=== PATIENT | male | born 1970 | race Caucasian/White ===

== ENCOUNTER 2022-02-19 07:33 | Outpatient (REF) | payer OTHER, SELFPAY ==
[2022-02-19 08:12] LABS: Hematocrit 45.3 % (42.0-52.0); Hemoglobin 14.5 g/dl (14.0-18.0); Mean Corpuscular Hemoglobin 27.9 pg (27.0-33.0); Mean Corpuscular Volume 87.1 fL (80.0-98.0); Platelet Count 188 X10*3/uL (160-400); Red Cell Distribution Width 13.2 % (11.0-16.0); White Blood Count 5.4 X10*3/uL (4.8-10.8)
[2022-02-19 08:22] LABS: Estimated Average Glucose 105 mg/dL; Hemoglobin A1c % 5.3 %
[2022-02-19 08:56] LABS: Alanine Aminotransferase 47 U/L (0-40); Albumin Level 4.2 g/dL (3.5-5.0); Alkaline Phosphatase 86 U/L (39-117); Anion Gap 15 (12-20); Aspartate Amino Transferase 42 U/L (5-37); Bilirubin Total 0.5 mg/dL (0.0-1.0); Blood Urea Nitrogen 25 mg/dL (9-16); Calcium 9.5 mg/dL (8.4-10.2); Carbon Dioxide 27 mmol/L (22-29); Chloride 102 mmol/L (96-108); Cholesterol 222 mg/dL; Estimated Glomerular Filt Rate > 60; Glucose Fasting 96 mg/dL (60-99); HDL Cholesterol 42 mg/dL; LDL Cholesterol Calculated 163 mg/dl; Potassium 5.2 mmol/L (3.3-5.1); Sodium 139 mmol/L (135-145); Total Protein 7.5 g/dL (6.5-8.0); Triglycerides 85 mg/dL
[2022-02-19 09:19] LABS: TSH reflex Free T4 1.14 uIU/mL (0.32-4.0)
[2022-02-19 10:15] LABS: Creatinine Urine 123.75 mg/dL; Microalbum/Creatinine Ratio Ur 11.3 ug/mg cr
[2022-02-22 17:37] LABS: Carbohydrate Antigen 19-9 4 U/mL (<34)
== END 2022-02-19 07:34 | disposition home or self-care (01) ==
LOC: HO.LAB 07:33
PROVIDERS: PCP Physician Assistant; Visit Provider Physician Assistant
DX: Z13.29 Encounter for screening for other suspected endocrine disorder (principal); Z13.220 Encounter for screening for lipoid disorders; I10 Essential (primary) hypertension; Z80.0 Family history of malignant neoplasm of digestive organs
CPT/HCPCS: 36415; 80053; 80061; 82043; 83036; 84443; 85027; 86301

== ENCOUNTER 2022-04-06 08:26 | Outpatient (REF) | payer OTHER, SELFPAY ==
--- NOTE | ~2022-04-06 | US_ITS ---
EXAMINATION: US ABDOMEN LIMITED CLINICAL INFORMATION: Other specified abnormal findings of blood chemistry. COMPARISON: None TECHNIQUE: Real-time imaging of the right upper quadrant abdominal viscera. Technically limited study secondary to bowel gas. FINDINGS: PANCREAS: Not visualized due to shadowing from overlying bowel gas. LIVER: Limited visualization secondary to patient body habitus and shadowing from overlying bowel gas. Increased parenchymal attenuation. No discrete focal liver lesion or significant intrahepatic biliary ductal dilatation. GALLBLADDER: The gallbladder is physiologically distended without evidence of stones, sludge, polyps, wall thickening or pericholecystic fluid. COMMON BILE DUCT: Normal in caliber measuring 0.3 cm in diameter. RIGHT KIDNEY: Limited visualization. The kidney measures 12.1 cm in maximum dimension. No gross nephrolithiasis or hydronephrosis. FREE FLUID: None. US/US abdomen limited IMPRESSION: Very limited examination secondary to patient body habitus and shadowing from overlying bowel gas. If deemed appropriate, correlation with a CT or MR of the abdomen could be obtained. The liver demonstrates increased echogenicity suggesting hepatic steatosis and/or hepatocellular disease.
== END 2022-04-06 08:27 | disposition home or self-care (01) ==
LOC: HO.HMGCX 08:26
PROVIDERS: PCP Physician Assistant; Visit Provider Physician Assistant
DX: R79.89 Other specified abnormal findings of blood chemistry (principal)
CPT/HCPCS: 76705

== ENCOUNTER 2023-03-11 06:20 | Outpatient (REF) | payer OTHER, SELFPAY ==
[2023-03-11 07:19] LABS: Hematocrit 47.6 % (42.0-52.0); Hemoglobin 14.9 g/dl (14.0-18.0); Mean Corpuscular HGB Conc 31.3 g/dl (31.0-36.0); Mean Corpuscular Hemoglobin 27.1 pg (27.0-33.0); Mean Corpuscular Volume 86.5 fL (80.0-98.0); Mean Platelet Volume 9.7 fL (9.4-12.4); Platelet Count 199 X10*3/uL (160-400); White Blood Count 6.9 X10*3/uL (4.8-10.8)
[2023-03-11 07:49] LABS: Alanine Aminotransferase 45 U/L (0-40); Albumin Level 4.3 g/dL (3.5-5.0); Alkaline Phosphatase 86 U/L (39-117); Anion Gap 12 (12-20); Aspartate Amino Transferase 37 U/L (5-37); Bilirubin Total 0.6 mg/dL (0.0-1.0); Blood Urea Nitrogen 19 mg/dL (9-16); Calcium 9.5 mg/dL (8.4-10.2); Carbon Dioxide 28 mmol/L (22-29); Chloride 104 mmol/L (96-108); Cholesterol 236 mg/dL (<200); Estimated Glomerular Filt Rate > 60; Glucose Fasting 103 mg/dL (60-99); HDL Cholesterol 41 mg/dL (>40); LDL Cholesterol Calculated 172 mg/dL (<100); Potassium 4.3 mmol/L (3.3-5.1); Sodium 140 mmol/L (135-145); Total Protein 8.1 g/dL (6.5-8.0); Triglycerides 116 mg/dL (<150)
[2023-03-11 08:04] LABS: TSH reflex Free T4 1.57 uIU/mL (0.32-4.0)
[2023-03-11 09:28] LABS: Creatinine Urine 77.83 mg/dL; Microalbum/Creatinine Ratio Ur 35.9 ug/mg cr (<30)
== END 2023-03-11 06:21 | disposition home or self-care (01) ==
LOC: HO.LAB 06:20
PROVIDERS: PCP Physician Assistant; Visit Provider Physician Assistant
DX: I10 Essential (primary) hypertension (principal); E78.9 Disorder of lipoprotein metabolism, unspecified
CPT/HCPCS: 36415; 80053; 80061; 82043; 82570; 84443; 85027

== ENCOUNTER 2023-03-16 15:55 | Outpatient (AMB) | payer OTHER, SELFPAY ==
[2023-03-16 15:57] VITALS: BP 116/72; PULSE 90; O2SAT 96; BMI 33.4
--- NOTE | 2023-03-16 15:57 | A.OFFPC_ITS ---
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 Required: No Accompanied by: Self / Same As Patient Allergies penicillin V Allergy (Unknown, Verified 03/16/23 16:08) rash Medication List - Last Reconciled 03/16/23 by Jori Spivey PA-C lisinopril-hydrochlorothiazide 20-12.5 mg 1 tab PO DAILY 90 days Tobacco use date assessed: 03/11/22 Dental Screening Dental Screen Date: 03/16/23 Did you have a dental visit in the last 12 months?: Yes Did you have a dental problem in the last 6 months where you did not have access to dental care?: No Was dental information given to patient?: Patient has dentist HPI Annual Exam HPI Details Is a 52 year here today physical.? Patient has a past history significant hypertension, obesity family history pancreatic cancer. Concern--> elevated fasting blood sugar and cholesterol. . Hypertension:? Blood pressure today in office acceptable. He denies any headaches, chest discomforts or palpitations. He reports he is adherent to blood pressure medication on a daily basis. .. Borderline high total cholesterol: Most recent lipid panel showing borderline high total cholesterol and LDL of 172. PLAN: He will work on lifestyle modifications to reduce his high cholesterol Elevated liver enzymes: Most recent liver enzymes have improved. Likely related to his obesity. . Family history pancreatic cancer:? Reports he is still gathering family history and has been referred to genetic counselor though has not been seen. Has done Cologuard and was negative Tumor markers negative Labs: Reviewed with patient and noted a slightly elevated fasting blood sugar 103. .. Vaccine: UTD with Tdap,? UTD flu vac, UTD with COVID Vac, considering shingrex vaccine. .. Colon cancer screening: [place] NEGATIVE - 11/2021- repeat 3 years Laboratory Tests 02/19/22 02/19/22 02/19/22 07:55 07:55 07:55 RBC Fasting Glucose 96 ALT 47 H Cholesterol 222 LDL Cholesterol, C alc TSH Urine Microalbumin 02/19/22 03/11/23 03/11/23 07:55 06:27 06:27 RBC Fasting Glucose ALT 45 H Cholesterol 236 H LDL Cholesterol, C alc 163 TSH Urine Microalbumin 03/11/23 03/11/23 03/11/23 06:27 06:27 06:57 RBC 5.50 Fasting Glucose 103 H ALT Cholesterol LDL Cholesterol, C alc 172 H TSH 1.57 Urine Microalbumin 28.0 PFS Medical History Colon cancer screening Surgical History History of right hip replacement History of rhinoplasty Family History (Updated 03/16/23 @ 16:16 by Jori Spivey PA-C) Father Diabetes Pancreatic cancer Mother Hypertension Hypercholesteremia Dementia Brother Hypercholesteremia Hypertension Paternal Uncle Pancreatic cancer Social History Housing: House Alcohol intake: never Patient Tobacco Use Status: Never used Tobacco Tobacco use type: Cigarette e-Cigarette/Vaping Use: Never Used Second Hand Smoke Exposure: No Current occupational status: employed 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 1. Little interest or pleasure in doing things: not at all 2. Feeling down, depressed, or hopeless: not at all 3. Trouble falling or staying asleep, or sleeping too much: not at all 4. Feeling tired or having little energy: not at all 5. Poor appetite or overeating: not at all 6. Feeling bad about yourself - or that you are a failure or have let yourself or your family down: not at all 7. Trouble concentrating on things, such as reading the newspaper or watching television: not at all 8. Moving or speaking so slowly that other people could have noticed. Or the opposite - being so fidgety or restless that you have been moving around a lot more than usual: not at all 9. Thoughts that you would be better off or of hurting yourself in some way: not at all Total score: 0 Depression Screening Interpretation: Negative Depression Screening Done: Yes 83945 - PHQ-9 Billing: Yes Source: Developed by Drs. Yousif Reich, Amira Reyes, David Rausch and colleagues, with an educational amari from [employer]. Thrive Questionnaire Date Thrive assessed: 03/11/22 I am a: Patient What is your living situation today?: I have a steady place to live Within the past 12 months, did the food you bought not last and you didn't have the money to get more?: Never true Within the past 12 months, did you worry whether your food would run out before you got money to buy more?: Never true Do you have trouble paying for medicines?: No Do you have trouble getting transportation to medical appointments?: No Do you have trouble paying your heating and electricity bill?: No Do you have trouble taking care of your child, family member or friend?: No Do you have trouble with day-to-day activities such as bathing, preparing meals, shopping, managing finances, etc.?: No Are you currently unemployed and looking for a job?: No Are you interested in more education?: No Please select the resources that you would like help with: None Currently or been in a relationship where the following occur: no concerns reported AUDIT C Alcohol Use Questionnaire (AUDIT-C) 1. How often do you have a drink containing alcohol?: Never Total Score: 0 SITA-7 AMB Questionnaire SITA-7 Date SITA - 7 assessed: 03/11/22 Source: Developed by Drs. Yousif Reich, Amira Reyes, David Rausch and colleagues, with an educational amari from [employer]. Review of Systems Const Denies body aches, Denies chills, Denies excessive sweating, Denies fatigue, Denies fever(s) and Denies headache(s) Eyes Denies blurry vision ENT Denies dysphagia, Denies vertigo, Denies dizziness, Denies headache(s), Denies hearing loss and Denies tinnitus Card Denies chest pain, Denies chest pain with activity, Denies syncope, Denies irregular heart rhythm and Denies dyspnea Resp Denies chest congestion, Denies cough, Denies hemoptysis, Denies dyspnea and Denies wheezing GI Denies abdominal pain, Denies melena, Denies hematochezia, Denies coffee ground emesis, Denies dysphagia, Denies diarrhea, Denies nausea and Denies vomiting Denies difficulty urinating, Denies dysuria, Denies urinary frequency, Denies urinary hesitancy and Denies urinary urgency Musc Denies arthralgias, Denies limited range of motion, Denies muscle cramps and Denies muscle weakness Skin/Breast Denies rash and Denies skin ulcer Neuro Denies Abnormal speech present, Denies confusion, Denies vertigo, Denies dizziness, Denies syncope, Denies headache(s), Denies memory loss and Denies seizure-like activity Psych Denies anxiety, Denies confusion, Denies depression, Denies memory loss, Denies panic attacks and Denies paranoia Endo Denies excessive sweating, Denies fatigue, Denies flushing, Denies polydipsia and Denies polyuria Aller/Immun Denies wheezing Physical exam (Primary Care) Vital Signs: Last Vital Signs Pulse 90 03/16/23 15:57 BP 116/72 03/16/23 15:57 Pulse Ox 96 03/16/23 15:57 Oxygen Delivery Method Room Air 03/16/23 15:57 BMI result Body Mass Index 33.4 BMI Assessment/Plan discussion: High Tobacco/Smoking Status: Tobacco use Status Tobacco use date assessed 03/11/22 03/16/23 15:58 Patient Tobacco Use Status Never used Tobacco 03/16/23 15:58 Tobacco use type Cigarette 03/16/23 15:58 e-Cigarette/Vaping Use Never Used 03/16/23 15:58 PHQ-9: PHQ-9 Score PHQ-9: Total score 0 03/16/23 16:10 Depression Screening Interpretation: Negative Thrive Assessment: Date of Thrive Assessment Date Thrive assessed 03/11/22 03/16/23 15:58 Currently or been in a relationship where the following occur: no concerns reported Const Other: Obese-weight gain noted General: cooperative, comfortable, no acute distress, alert and awake; No confusion Orientation/consciousness: oriented to person, oriented to place, patient oriented x3 and No confusion HENMT Head: Yes normocephalic Ears: external ears normal and TM's normal bilaterally Face and sinus: No sinus tenderness Mouth: Normal oral and palatal mucosa present and tongue normal Teeth and gingiva: dentition normal and gingiva normal Throat: Yes posterior oropharynx normal, Yes tonsils normal and Yes uvula midline Eyes Conjunctivae: conjunctivae normal Sclerae: sclerae normal Pupils: Equal, round and reactive pupils present EOM: EOMs intact bilaterally Direct Ophthalmoscopy: No no photophobia Neck Neck: Yes no lymphadenopathy, No tender and Yes no JVD Thyroid: Thyroid normal Carotids: no bruits Chest Chest palpation & inspection: no tenderness Resp Effort & Inspection: normal respiratory effort, no audible wheezes, not labored and no stridor Auscultation: no crackles, no rales, no rhonchi and no wheezes Cardio Jugular venous distension: no JVD Rate: regular rate, not bradycardic and not tachycardic Rhythm: regular rhythm Bruits: no carotid bruits Peripheral pulses: Peripheral pulses 2+ throughout GI Inspection: Yes normal to inspection, No abdominal wall ecchymosis and No visible herniation Palpation (GI): Soft to palpation, nontender, no guarding, not rigid and No hepatosplenomegaly present Auscultation: normoactive bowel sounds General: Yes no CVA tenderness Back/Spine/Pelvis Back: no CVA tenderness and No back tenderness Cervical Spine: cervical ROM normal Thoracic/Lumbar Spine: thoracic and lumbar spine normal to inspection, straight leg raise negative bilaterally, No thoraco-lumbar ROM limited and No lumbar spinal tenderness Skin Lesions: no lesions Rashes: no rashes Wounds: no wounds Neuro General: oriented to person, oriented to place, patient oriented x3, CN's II-XI intact bilaterally and No confusion Cranial nerves: Yes Equal, round and reactive pupils present and Yes Normal accommodation reflex present Cognition (Neuro): normal cognition Speech: No Abnormal speech present Gait exam (Neuro): Normal gait present Motor exam (neuro): 5/5 motor strength present throughout Extrem Right upper extremity: full ROM; no cyanosis Left upper extremity: full ROM; no cyanosis Right lower extremity: no edema Left lower extremity: no edema Psych Appearance: grossly normal Mental Status: mental status grossly normal Affect: normal affect Attitude: cooperative Thought process: Normal thought process present Assessment and Plan Assessment & Plan (1) Annual physical exam: Code(s): Z00.00 - Encounter for general adult medical examination without abnormal findings (2) HTN (hypertension): Code(s): I10 - Essential (primary) hypertension Qualifiers: Hypertension type: primary hypertension Qualified Code(s): I10 - Es sential (primary) hypertension Plan: Patient's blood pressure acceptable today in office. Will continue his current dose of antihypertensive medication with goal blood pressure be below 140/90 (3) Borderline high cholesterol: Code(s): E78.9 - Disorder of lipoprotein metabolism, unspecified Plan: Patient's total cholesterol borderline high. Also LDL elevated at 172. He will work on lifestyle modifications to reduce his high cholesterol foods in his diet. He will continue to try to be as physically active as he can in order to lose weight. (4) Elevated LFTs: Code(s): R79.89 - Other specified abnormal findings of blood chemistry Plan: LFThave improved previous. Will continue to follow. (5) Obese: Code(s): E66.9 - Obesity, unspecified Qualifiers: Body mass index: BMI 31.0-31.9 Obesity classification: adult class 1 (BMI 30 - 34.9) Obesity type: due to excess calories Serious obesity comorbidity presence: without serious comorbidity Qualified Code(s): E66.09 - Other obesity due to excess calories; Z68.31 - Body mass index [BMI] 31.0-31.9, adult Plan: Patient does understand his BMI is over 30 will work on being more physically active and adapting to better eating habits to reduce his weight (6) Impaired glucose metabolism: Code(s): R73.09 - Other abnormal glucose Plan: Patient's most recent fasting blood sugar 103. He is concerned diabetes thus will check A1c at next lab draw. Orders: Orders Lipid Panel 03/16/23 E78.9 - Disorder of lipoprotein metabolism, unspecified Hemoglobin A1c 03/16/23 R73.09 - Other abnormal glucose Microalbumin, Random (w Creat) 03/16/23 I10 - Essential (primary) hypertension Comprehensive [place]. Panel Fast 03/16/23 I10 - Essential (primary) hypertension Complete Blood Count no Diff 03/16/23 I10 - Essential (primary) hypertension Prostate Specific Antigen Scr 03/16/23 I10 - Essential (primary) hypertension, Z12.5 - Encounter for screening for malignant neoplasm of prostate Coding Level of Care Code Est Pt Prev Care [id number]([id number]) Diagnoses Annual physical exam Z00.00 Primary hypertension I10 Hypertension type: primary hypertension Borderline high cholesterol E78.9 Elevated LFTs R79.89 Class 1 obesity due to excess calories without serious comorbidity with body mass index (BMI) of 31.0 to 31.9 in adult E66.09; Z68.31 Body mass index: BMI 31.0-31.9 Obesity classification: adult class 1 (BMI 30 - 34.9) Obesity type: due to excess calories Serious obesity comorbidity presence: without serious comorbidity Impaired glucose metabolism R73.09
== END 2023-03-16 16:28 | disposition home or self-care (01) ==
PROVIDERS: Visit Provider Physician Assistant
DX: Z00.00 Encounter for general adult medical examination without abnormal findings (principal); I10 Essential (primary) hypertension; E78.9 Disorder of lipoprotein metabolism, unspecified; R79.89 Other specified abnormal findings of blood chemistry; E66.09 Other obesity due to excess calories; Z68.31 Body mass index [BMI] 31.0-31.9, adult; R73.09 Other abnormal glucose
CPT/HCPCS: 99396

== ENCOUNTER 2023-09-23 06:39 | Outpatient (REF) | payer OTHER, SELFPAY ==
[2023-09-23 08:03] LABS: Hematocrit 48.3 % (42.0-52.0); Hemoglobin 15.3 g/dl (14.0-18.0); Mean Corpuscular HGB Conc 31.7 g/dl (31.0-36.0); Mean Corpuscular Hemoglobin 27.9 pg (27.0-33.0); Mean Corpuscular Volume 88.1 fL (80.0-98.0); Mean Platelet Volume 10.5 fL (9.4-12.4); Platelet Count 182 X10*3/uL (160-400); Red Blood Count 5.48 X10*6/uL (4.60-5.80); Red Cell Distribution Width 13.6 % (11.0-16.0); White Blood Count 6.1 X10*3/uL (4.8-10.8)
[2023-09-23 08:24] LABS: Estimated Average Glucose 105 mg/dL; Hemoglobin A1c % 5.3 % (<6.0)
[2023-09-23 08:34] LABS: Creatinine Urine 104.57 mg/dL; Microalbum/Creatinine Ratio Ur 21.9 ug/mg cr (<30)
[2023-09-23 08:48] LABS: Alanine Aminotransferase 50 U/L (0-40); Albumin Level 4.2 g/dL (3.5-5.0); Alkaline Phosphatase 74 U/L (39-117); Anion Gap 12 (12-20); Aspartate Amino Transferase 37 U/L (5-37); Bilirubin Total 0.4 mg/dL (0.0-1.0); Blood Urea Nitrogen 22 mg/dL (9-16); Calcium 9.6 mg/dL (8.4-10.2); Carbon Dioxide 28 mmol/L (22-29); Chloride 105 mmol/L (96-108); Cholesterol 218 mg/dL (<200); Estimated Glomerular Filt Rate > 60; Glucose Fasting 94 mg/dL (60-99); HDL Cholesterol 43 mg/dL (>40); LDL Cholesterol Calculated 154 mg/dL (<100); Potassium 4.4 mmol/L (3.3-5.1); Sodium 141 mmol/L (135-145); Total Protein 7.7 g/dL (6.5-8.0); Triglycerides 106 mg/dL (<150)
[2023-09-23 08:56] LABS: Prostate Specific Antigen Scr 0.17 ng/mL (<0.05-4.0)
== END 2023-09-23 06:40 | disposition home or self-care (01) ==
LOC: HO.LAB 06:39
PROVIDERS: PCP Physician Assistant; Visit Provider Physician Assistant
DX: I10 Essential (primary) hypertension (principal); Z12.5 Encounter for screening for malignant neoplasm of prostate; E78.9 Disorder of lipoprotein metabolism, unspecified; R73.09 Other abnormal glucose
CPT/HCPCS: 36415; 80053; 80061; 82043; 82570; 83036; 84153; 85027

== ENCOUNTER 2023-09-27 15:43 | Outpatient (AMB) | payer OTHER, SELFPAY ==
[2023-09-27 15:52] VITALS: BP 114/70; PULSE 82; O2SAT 97; BMI 30.4
--- NOTE | 2023-09-27 15:52 | A.OFFPC_ITS ---
Vital Signs 09/27/23 15:52 Height 6 ft 3 in Weight 243 lb 6 oz BMI 30.4 BP 114/70 Blood Pressure Location Lt brachial Position Sitting Pulse 82 Pulse Source Pulse Oximeter Pulse Oximetry (%) 97 Oxygen Delivery Method Room Air Intake Visit Reasons: f/u labs - HTN- IGM Stove Polisher Required: No Accompanied by: Self / Same As Patient Allergies penicillin V Allergy (Unknown, Verified 09/27/23 16:14) rash Medication List - Last Reconciled 09/27/23 by Jori Spivey PA-C lisinopril-hydrochlorothiazide 20-12.5 mg 1 tab PO DAILY 90 days Tobacco use date assessed: 09/27/23 Dental Screening Dental Screen Date: 09/27/23 Did you have a dental visit in the last 12 months?: Yes Did you have a dental problem in the last 6 months where you did not have access to dental care?: No Was dental information given to patient?: Patient has dentist HPI f/u labs - HTN- IGM HPI Details ? Patient has a past history significant hypertension, obesity family history pancreatic cancer. . Hypertension:? Blood pressure today in office acceptable. He denies any headaches, chest discomforts or palpitations. He reports he is adherent to blood pressure medication on a daily basis. .. Borderline high total cholesterol: . Most recent lipid panel showing much improved total cholesterol and LDL. He has been working on lifestyle and dietary modifications in his lost significant amount of weight since last office visit. PLAN: He will continue to work on lifestyle modifications to reduce his high cholesterol Elevated liver enzymes: Still has slightly elevated ALT. Does have ultrasound with evidence of fatty liver disease. Likely related to his obesity. . Family history pancreatic cancer:? Reports he is still gathering family history and has been referred to genetic counselor though has not been seen. Has done Cologuard and was negative Tumor markers negative [facility] Medical History Colon cancer screening Surgical History History of right hip replacement History of rhinoplasty Family History Father Diabetes Pancreatic cancer Mother Hypertension Hypercholesteremia Dementia Brother Hypercholesteremia Hypertension Paternal Uncle Pancreatic cancer Social History Housing: House Alcohol intake: never Patient Tobacco Use Status: Never used Tobacco Tobacco use type: Cigarette e-Cigarette/Vaping Use: Never Used Second Hand Smoke Exposure: No Current occupational status: employed 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 1. Little interest or pleasure in doing things: not at all 2. Feeling down, depressed, or hopeless: not at all 3. Trouble falling or staying asleep, or sleeping too much: not at all 4. Feeling tired or having little energy: not at all 5. Poor appetite or overeating: not at all 6. Feeling bad about yourself - or that you are a failure or have let yourself or your family down: not at all 7. Trouble concentrating on things, such as reading the newspaper or watching television: not at all 8. Moving or speaking so slowly that other people could have noticed. Or the opposite - being so fidgety or restless that you have been moving around a lot more than usual: not at all 9. Thoughts that you would be better off or of hurting yourself in some way: not at all Total score: 0 Depression Screening Interpretation: Negative Depression Screening Done: Yes 85750 - PHQ-9 Billing: Yes Source: Developed by Drs. Yousif Reich, Amira Reyes, David Rausch and colleagues, with an educational amari from [employer]. Thrive Questionnaire Date Thrive assessed: 09/27/23 I am a: Patient What is your living situation today?: I have a steady place to live Within the past 12 months, did the food you bought not last and you didn't have the money to get more?: Never true Within the past 12 months, did you worry whether your food would run out before you got money to buy more?: Never true Do you have trouble paying for medicines?: No Do you have trouble getting transportation to medical appointments?: No Do you have trouble paying your heating and electricity bill?: No Do you have trouble taking care of your child, family member or friend?: No Do you have trouble with day-to-day activities such as bathing, preparing meals, shopping, managing finances, etc.?: No Are you currently unemployed and looking for a job?: No Are you interested in more education?: No Please select the resources that you would like help with: None Currently or been in a relationship where the following occur: no concerns reported THRIVE Score: 0 AUDIT C Alcohol Use Questionnaire (AUDIT-C) 1. How often do you have a drink containing alcohol?: Never Total Score: 0 SITA-7 AMB Questionnaire SITA-7 Date SITA - 7 assessed: 09/27/23 Feeling nervous, anxious, or on edge: 0 = Not at all Not being able to stop or control worryin = Not at all Worrying too much about different things: 0 = Not at all Trouble relaxin = Not at all Being so restless that it is hard to sit still: 0 = Not at all Becoming easily annoyed or irritable: 0 = Not at all Feeling afraid as if something awful might happen: 0 = Not at all Total SITA-7 score (0-4 normal; 5-9 mild; 10-14 moderate; 15-21 severe): 0 Source: Developed by Drs. Yousif Reich, Amira Reyes, David Rausch and colleagues, with an educational amari from [employer]. SITA-7 Assessment Billing SITA-7 Assessment Tool: SITA-7 Assessment 83327 Review of Systems Const Denies headache(s) Eyes Denies loss of vision ENT Denies vertigo, Denies dizziness, Denies headache(s) and Denies sore throat Card Denies chest pain, Denies leg edema and Denies lightheadedness Resp Denies cough, Denies hemoptysis and Denies wheezing GI Denies abdominal pain, Denies melena, Denies constipation, Denies diarrhea and Denies vomiting Denies dysuria, Denies urinary frequency and Denies urinary urgency Musc Denies arthralgias, Denies joint swelling, Denies numbness and Denies tingling Neuro Denies Abnormal speech present, Denies behavioral changes, Denies vertigo, Denies dizziness, Denies headache(s), Denies loss of vision, Denies memory loss, Denies numbness and Denies tingling Psych Denies anxiety, Denies behavioral changes, Denies depression, Denies memory loss and Denies panic attacks Deonte/Lymph Denies easy bleeding and Denies easy bruising Aller/Immun Denies wheezing Physical exam (Primary Care) Vital Signs: Last Vital Signs Pulse 82 09/27/23 15:52 BP 114/70 09/27/23 15:52 Pulse Ox 97 09/27/23 15:52 Oxygen Delivery Method Room Air 09/27/23 15:52 BMI result Body Mass Index 30.4 Tobacco/Smoking Status: Tobacco use Status Tobacco use date assessed 09/27/23 09/27/23 15:58 Patient Tobacco Use Status Never used Tobacco 09/27/23 15:58 Tobacco use type Cigarette 09/27/23 15:58 e-Cigarette/Vaping Use Never Used 09/27/23 15:58 PHQ-9: PHQ-9 Score PHQ-9: Total score 0 09/27/23 16:15 Depression Screening Interpretation: Negative Thrive Assessment: Date of Thrive Assessment Date Thrive assessed 09/27/23 09/27/23 15:58 Currently or been in a relationship where the following occur: no concerns reported Const General: healthy appearing, no acute distress, alert and awake Nutritional Appearance: well nourished Orientation/consciousness: oriented to person, oriented to place and oriented to time HENMT Ears: TM's normal bilaterally General nose exam: Normal nasal mucous membranes and turbinates present Eyes Conjunctivae: conjunctivae normal Sclerae: sclerae normal Pupils: Equal, round and reactive pupils present Neck Neck: Yes no lymphadenopathy and Yes no JVD Thyroid: Thyroid normal Carotids: no bruits Resp Effort & Inspection: normal respiratory effort and not tachypneic Auscultation: no crackles, no rales, no rhonchi and no wheezes Cardio Rate: regular rate Rhythm: regular rhythm Heart sounds: no murmurs and normal S1 and S2 GI Palpation (GI): Soft to palpation, nontender, no hepatomegaly and no splenomegaly Auscultation: normal bowel sounds Skin General skin exam: no rashes or lesions noted and dry skin Neuro General: oriented to person, oriented to place and oriented to time Cranial nerves: Yes Equal, round and reactive pupils present Speech: No Abnormal speech present Gait exam (Neuro): Normal gait present Motor exam (neuro): no tremor noted Extrem Right upper extremity: full ROM Left upper extremity: full ROM Right lower extremity: full ROM; no edema Left lower extremity: full ROM; no edema Psych Mental Status: mental status grossly normal Speech and movement: Normal speech and movement present Affect: normal affect Attitude: cooperative Thought process: Normal thought process present Assessment and Plan Assessment & Plan (1) HTN (hypertension): Code(s): I10 - Essential (primary) hypertension Qualifiers: Hypertension type: primary hypertension Qualified Code(s): I10 - Essential (primary) hypertension Plan: Patient's blood pressure acceptable today in office. Will continue his current dose of antihypertensive medication with goal blood pressure be below 140/90 (2) Borderline high cholesterol: Code(s): E78.9 - Disorder of lipoprotein metabolism, unspecified Plan: Patient's total cholesterol borderline high though has improved. He will continue to work on lifestyle modifications to reduce his high cholesterol foods in his diet. He will continue to try to be as physically active as he can in order to lose weight. (3) Elevated LFTs: Code(s): R79.89 - Other specified abnormal findings of blood chemistry Plan: LFThave improved previous. Will continue to follow. (4) Impaired glucose metabolism: Code(s): R73.09 - Other abnormal glucose Plan: Most recent fasting blood sugar much improved since he has been making lifestyle changes. A1c acceptable.. Orders: Orders Complete Blood Count no Diff 6 Months E78.9 - Disorder of lipoprotein metabolism, unspecified Comprehensive [place]. Panel Fast 6 Months I10 - Essential (primary) hypertension Lipid Panel 6 Months E78.9 - Disorder of lipoprotein metabolism, unspecified Medications: Refilled lisinopril-hydrochlorothiazide 20-12.5 mg 1 tab PO DAILY 90 tabs 1RF 90 days I10 - Essential (primary) hypertension Patient Instructions: Goal: Blood pressure to remain below 140/90, Continue to lose weight and reduce total cholesterol below 200 Barriers: Adherence to healthy eating habits and physical activity. Coding Level of Care Code Est Pt Level 4 (38531) Diagnoses Primary hypertension I10 Hypertension type: primary hypertension Borderline high cholesterol E78.9 Elevated LFTs R79.89 Impaired glucose metabolism R73.09 Additional Codes SITA-7 Assessment Billing - SITA-7 Assessment Tool: SITA-7 Assessment 02485 ([id number])
== END 2023-09-27 16:26 | disposition home or self-care (01) ==
PROVIDERS: PCP Physician Assistant; Visit Provider Physician Assistant
DX: I10 Essential (primary) hypertension (principal); E78.9 Disorder of lipoprotein metabolism, unspecified; R79.89 Other specified abnormal findings of blood chemistry; R73.09 Other abnormal glucose
CPT/HCPCS: 99214

== ENCOUNTER 2024-04-11 07:25 | Outpatient (REF) | payer OTHER, SELFPAY ==
[2024-04-11 08:24] LABS: Hematocrit 48.7 % (42.0-52.0); Hemoglobin 15.4 g/dl (14.0-18.0); Mean Corpuscular HGB Conc 31.6 g/dl (31.0-36.0); Mean Corpuscular Hemoglobin 27.5 pg (27.0-33.0); Mean Corpuscular Volume 86.8 fL (80.0-98.0); Mean Platelet Volume 10.2 fL (9.4-12.4); Platelet Count 175 X10*3/uL (160-400); Red Blood Count 5.61 X10*6/uL (4.60-5.80); Red Cell Distribution Width 13.5 % (11.0-16.0); White Blood Count 6.6 X10*3/uL (4.8-10.8)
[2024-04-11 08:47] LABS: Alanine Aminotransferase 65 U/L (0-40); Albumin Level 4.3 g/dL (3.5-5.0); Alkaline Phosphatase 73 U/L (39-117); Anion Gap 11 (12-20); Aspartate Amino Transferase 44 U/L (5-37); Bilirubin Total 0.6 mg/dL (0.0-1.0); Blood Urea Nitrogen 24 mg/dL (9-16); Calcium 9.9 mg/dL (8.4-10.2); Carbon Dioxide 29 mmol/L (22-29); Chloride 105 mmol/L (96-108); Cholesterol 220 mg/dL (<200); Estimated Glomerular Filt Rate > 60; Glucose Fasting 93 mg/dL (60-99); HDL Cholesterol 42 mg/dL (>40); LDL Cholesterol Calculated 152 mg/dL (<100); Potassium 4.6 mmol/L (3.3-5.1); Sodium 140 mmol/L (135-145); Total Protein 7.7 g/dL (6.5-8.0); Triglycerides 133 mg/dL (<150)
== END 2024-04-11 07:26 | disposition home or self-care (01) ==
LOC: HO.LAB 07:25
PROVIDERS: PCP Physician Assistant; Visit Provider Physician Assistant
DX: Z00.00 Encounter for general adult medical examination without abnormal findings (principal); I10 Essential (primary) hypertension; E78.9 Disorder of lipoprotein metabolism, unspecified; E66.811 Obesity, class 1; R79.89 Other specified abnormal findings of blood chemistry; R73.09 Other abnormal glucose; Z79.899 Other long term (current) drug therapy
CPT/HCPCS: 36415; 80053; 80061; 85027; 96127

== ENCOUNTER 2024-04-11 15:57 | Outpatient (AMB) | payer OTHER, SELFPAY ==
[2024-04-11 16:19] VITALS: BP 132/88; PULSE 93; O2SAT 95; BMI 31.3
--- NOTE | 2024-04-11 16:19 | MHC.PC.OV ---
Vital Signs 04/11/24 16:19 Height 6 ft 3 in Weight 250 lb 4 oz BMI 31.3 BP 132/88 Blood Pressure Location Lt brachial Position Sitting Pulse 93 Pulse Source Pulse Oximeter Pulse Oximetry (%) 95 Oxygen Delivery Method Room Air Intake Visit Reasons: annual exam Intake Note: Patient is here today for a physical. Car Stower Required: No Accompanied by: Self / Same As Patient Allergies penicillin V Allergy (Unknown, Verified 04/11/24 16:28) rash Medication List - Last Reconciled 04/11/24 by Jori Spivey PA-C lisinopril-hydrochlorothiazide 20-12.5 mg 1 tab PO DAILY 90 days Tobacco use date assessed: 09/27/23 Dental Screening Dental Screen Date: 09/27/23 HPI annual exam HPI Details Patient is a 53-year-old male here today for routine annual physical. Patient has a past history significant hypertension, obesity family history pancreatic cancer. . Hypertension:? Blood pressure today in office acceptable. He denies any headaches, chest discomforts or palpitations. He reports he is adherent to blood pressure medication on a daily basis. .. Borderline high total cholesterol: . Most recent lipid panel showing much improved total cholesterol and LDL. He has been working on lifestyle and dietary modifications in his lost significant amount of weight since last office visit. PLAN: He will continue to work on lifestyle modifications to reduce his high cholesterol Elevated liver enzymes: Still has slightly more elevated ALT. Of note gained weight since last office visit. Does have ultrasound with evidence of fatty liver disease. Likely related to his obesity. . Family history pancreatic cancer:? Reports he is still gathering family history and has been referred to genetic counselor though has not been seen. Has done Cologuard and was negative Tumor markers negative Vaccine: UTD with Tdap,? UTD flu vac, UTD with COVID Vac, considering shingrex vaccine. .. Colon cancer screening: [place] NEGATIVE - 11/2021- repeat 3 years Laboratory Tests 09/23/23 04/11/24 06:55 07:46 RBC 5.61 Creatinine 0.96 AST 44 H ALT 65 H Cholesterol 220 H LDL Cholesterol, C alc 152 H Urine Microalbumin 23.0 PFSH Medical History (Updated 04/12/24 @ 07:31 by Jori Spivey PA-C) Family history of pancreatic cancer Colon cancer screening Surgical History History of right hip replacement History of rhinoplasty Family History Father Diabetes Pancreatic cancer Mother Hypertension Hypercholesteremia Dementia Brother Hypercholesteremia Hypertension Paternal Uncle Pancreatic cancer Social History Housing: House Alcohol intake: never Patient Tobacco Use Status: Never used Tobacco Tobacco use type: Cigarette e-Cigarette/Vaping Use: Never Used Second Hand Smoke Exposure: No Current occupational status: employed Current occupation: [employer] Cognitive needs: No Hearing needs: No Vision needs: Yes Questionnaire PHQ-9 Over the last 2 weeks, how often have you been bothered by any of the following problems? 1. Little interest or pleasure in doing things: not at all 2. Feeling down, depressed, or hopeless: not at all 3. Trouble falling or staying asleep, or sleeping too much: not at all 4. Feeling tired or having little energy: not at all 5. Poor appetite or overeating: not at all 6. Feeling bad about yourself - or that you are a failure or have let yourself or your family down: not at all 7. Trouble concentrating on things, such as reading the newspaper or watching television: not at all 8. Moving or speaking so slowly that other people could have noticed. Or the opposite - being so fidgety or restless that you have been moving around a lot more than usual: not at all 9. Thoughts that you would be better off or of hurting yourself in some way: not at all Total score: 0 Depression Screening Interpretation: Negative Depression Screening Done: Yes [id number] - PHQ-9 Billing: Yes Source: Developed by Drs. Yousif Reich, Amira Reyes, David Rausch and colleagues, with an educational amari from [employer]. Thrive Questionnaire Date Thrive assessed: 04/11/24 I am a: Patient What is your living situation today?: I have a steady place to live Within the past 12 months, did the food you bought not last and you didn't have the money to get more?: Never true Within the past 12 months, did you worry whether your food would run out before you got money to buy more?: Never true Do you have trouble paying for medicines?: No Do you have trouble getting transportation to medical appointments?: No Do you have trouble paying your heating and electricity bill?: No Do you have trouble taking care of your child, family member or friend?: No Do you have trouble with day-to-day activities such as bathing, preparing meals, shopping, managing finances, etc.?: No Are you currently unemployed and looking for a job?: No Are you interested in more education?: No Please select the resources that you would like help with: None Currently or been in a relationship where the following occur: No concerns reported THRIVE Score: 0 AUDIT C Alcohol Use Questionnaire (AUDIT-C) 1. How often do you have a drink containing alcohol?: Never 3. How often do you have six or more drinks on one occasion?: Never Total Score: 0 SITA-7 AMB Questionnaire SITA-7 Date SITA - 7 assessed: 04/11/24 Feeling nervous, anxious, or on edge: 0 = Not at all Not being able to stop or control worryin = Not at all Worrying too much about different things: 0 = Not at all Trouble relaxin = Not at all Being so restless that it is hard to sit still: 0 = Not at all Becoming easily annoyed or irritable: 0 = Not at all Feeling afraid as if something awful might happen: 0 = Not at all Total SITA-7 score (0-4 normal; 5-9 mild; 10-14 moderate; 15-21 severe): 0 Source: Developed by Drs. Yousif Reich, Amira Reyes, David Rausch and colleagues, with an educational amari from [employer]. SITA-7 Assessment Billing SITA-7 Assessment Tool: SITA-7 Assessment 15972 Review of Systems Const Denies body aches, Denies chills, Denies excessive sweating, Denies fatigue, Denies fever(s) and Denies headache(s) Eyes Denies blurry vision ENT Denies dysphagia, Denies vertigo, Denies dizziness, Denies headache(s), Denies hearing loss and Denies tinnitus Card Denies chest pain, Denies chest pain with activity, Denies syncope, Denies irregular heart rhythm and Denies dyspnea Resp Denies chest congestion, Denies cough, Denies hemoptysis, Denies dyspnea and Denies wheezing GI Denies abdominal pain, Denies melena, Denies hematochezia, Denies coffee ground emesis, Denies dysphagia, Denies diarrhea, Denies nausea and Denies vomiting Denies difficulty urinating, Denies dysuria, Denies urinary frequency, Denies urinary hesitancy and Denies urinary urgency Musc Denies arthralgias, Denies limited range of motion, Denies muscle cramps and Denies muscle weakness Skin/Breast Denies rash and Denies skin ulcer Neuro Denies Abnormal speech present, Denies confusion, Denies vertigo, Denies dizziness, Denies syncope, Denies headache(s), Denies memory loss and Denies seizure-like activity Psych Denies anxiety, Denies confusion, Denies depression, Denies memory loss, Denies panic attacks and Denies paranoia Endo Denies excessive sweating, Denies fatigue, Denies flushing, Denies polydipsia and Denies polyuria Aller/Immun Denies wheezing Physical exam (Primary Care) Vital Signs: Last Vital Signs Pulse 93 04/11/24 16:19 BP 132/88 04/11/24 16:19 Pulse Ox 95 04/11/24 16:19 Oxygen Delivery Method Room Air 04/11/24 16:19 BMI result Body Mass Index 31.3 BMI Assessment/Plan discussion: High BMI High, discussed plan: lifestyle, weight reduction, dietary and physical activity Tobacco/Smoking Status: Tobacco use Status Tobacco use date assessed 09/27/23 04/11/24 16:21 Patient Tobacco Use Status Never used Tobacco 04/11/24 16:21 Tobacco use type Cigarette 04/11/24 16:21 e-Cigarette/Vaping Use Never Used 04/11/24 16:21 PHQ-9: PHQ-9 Score PHQ-9: Total score 0 04/11/24 16:33 Depression Screening Interpretation: Negative Thrive Assessment: Date of Thrive Assessment Date Thrive assessed 04/11/24 04/11/24 16:21 Currently or been in a relationship where the following occur: No concerns reported Const General: cooperative, comfortable, no acute distress, alert and awake; No confusion Orientation/consciousness: oriented to person, oriented to place, patient oriented x3 and No confusion HENMT Head: Yes normocephalic Ears: external ears normal and TM's normal bilaterally Face and sinus: No sinus tenderness Mouth: Normal oral and palatal mucosa present and tongue normal Teeth and gingiva: dentition normal and gingiva normal Throat: Yes posterior oropharynx normal, Yes tonsils normal and Yes uvula midline Eyes Conjunctivae: conjunctivae normal Sclerae: sclerae normal Pupils: Equal, round and reactive pupils present EOM: EOMs intact bilaterally Direct Ophthalmoscopy: No no photophobia Neck Neck: Yes no lymphadenopathy, No tender and Yes no JVD Thyroid: Thyroid normal Carotids: no bruits Chest Chest palpation & inspection: no tenderness Resp Effort & Inspection: normal respiratory effort, no audible wheezes, not labored and no stridor Auscultation: no crackles, no rales, no rhonchi and no wheezes Cardio Jugular venous distension: no JVD Rate: regular rate, not bradycardic and not tachycardic Rhythm: regular rhythm Bruits: no carotid bruits Peripheral pulses: Peripheral pulses 2+ throughout GI Inspection: Yes normal to inspection, No abdominal wall ecchymosis and No visible herniation Palpation (GI): Soft to palpation, nontender, no guarding, not rigid and No hepatosplenomegaly present Auscultation: normoactive bowel sounds General: Yes no CVA tenderness Back/Spine/Pelvis Back: no CVA tenderness and No back tenderness Cervical Spine: cervical ROM normal Thoracic/Lumbar Spine: thoracic and lumbar spine normal to inspection, straight leg raise negative bilaterally, No thoraco-lumbar ROM limited and No lumbar spinal tenderness Skin Lesions: no lesions Rashes: no rashes Wounds: no wounds Neuro General: oriented to person, oriented to place, patient oriented x3, CN's II-XI intact bilaterally and No confusion Cranial nerves: Yes Equal, round and reactive pupils present and Yes Normal accommodation reflex present Cognition (Neuro): normal cognition Speech: No Abnormal speech present Gait exam (Neuro): Normal gait present Motor exam (neuro): 5/5 motor strength present throughout Extrem Right upper extremity: full ROM; no cyanosis Left upper extremity: full ROM; no cyanosis Right lower extremity: no edema Left lower extremity: no edema Psych Appearance: grossly normal Mental Status: mental status grossly normal Affect: normal affect Attitude: cooperative Thought process: Normal thought process present Coding Level of Care Code Est Pt Prev Care 40-64y([id number]) Diagnoses Annual physical exam Z00.00 Primary hypertension I10 Hypertension type: primary hypertension Borderline high cholesterol E78.9 Colon cancer screening Z12.11 Class 1 obesity E66.811 Elevated LFTs R79.89 Impaired glucose metabolism R73.09 Additional Codes SITA-7 Assessment Billing - SITA-7 Assessment Tool: SITA-7 Assessment 59041 ([id number]) PHQ-9 - 27980 - PHQ-9 Billing: Yes ([id number]) Assessment & Plan Assessment & Plan (1) Annual physical exam: Code(s): Z00.00 - Encounter for general adult medical examination without abnormal findings Category: Medical Plan: As per HPI (2) HTN (hypertension): Code(s): I10 - Essential (primary) hypertension Category: Medical Qualifiers: Hypertension type: primary hypertension Qualified Code(s): I10 - Essential (primary) hypertension Plan: Patient's blood pressure acceptable today in office. Will continue his current dose of lisinopril hydrochlorothiazide with goal blood pressure to remain below 140/90 (3) Borderline high cholesterol: Code(s): E78.9 - Disorder of lipoprotein metabolism, unspecified Category: Medical Plan: Patient continues to have borderline high total cholesterol and LDL. He has been working on lifestyle and dietary modifications. He admits that recently he has not been eating too well. He will continue working on dietary modifications with goal LDL to remain below 160 (4) Colon cancer screening: Comment: COLOGUARD NEG 2021 Code(s): Z12.11 - Encounter for screening for malignant neoplasm of colon Category: Medical Plan: Willing to get Cologuard next year 2024 (5) Class 1 obesity: Code(s): E66.811 - Obesity, class 1 Category: Medical Plan: Patient does understand his BMI is over 30 will continue working on being more physically active and adapting to better eating habits to reduce his weight. (6) Elevated LFTs: Code(s): R79.89 - Other specified abnormal findings of blood chemistry Category: Medical Plan: Noted slight elevation in his LFTs likely secondary to his weight gain . Of note ultrasound in 2021 showing evidence of fatty liver disease. He will continue working on weight reduction (7) Impaired glucose metabolism: Code(s): R73.09 - Other abnormal glucose Category: Medical Plan: Most recent fasting blood sugar much improved. Orders: Orders Comprehensive [facility]. Panel Fast 04/11/24 I10 - Essential (primary) hypertension Lipid Panel 04/11/24 E78.9 - Disorder of lipoprotein metabolism, unspecified Hemoglobin A1c 04/11/24 R73.09 - Other abnormal glucose Complete Blood Count no Diff 04/11/24 I10 - Essential (primary) hypertension Prostate Specific Antigen Scr 04/11/24 I10 - Essential (primary) hypertension, Z12.5 - Encounter for screening for malignant neoplasm of prostate Medications: Refilled lisinopril-hydrochlorothiazide 20-12.5 mg 1 tab PO DAILY 90 tabs 1RF 90 days I10 - Essential (primary) hypertension
== END 2024-04-11 16:45 | disposition home or self-care (01) ==
PROVIDERS: PCP Physician Assistant; Visit Provider Physician Assistant
DX: Z00.00 Encounter for general adult medical examination without abnormal findings (principal); I10 Essential (primary) hypertension; E66.811 Obesity, class 1; Z68.31 Body mass index [BMI] 31.0-31.9, adult; E78.9 Disorder of lipoprotein metabolism, unspecified; Z12.11 Encounter for screening for malignant neoplasm of colon; R73.09 Other abnormal glucose

== ENCOUNTER 2025-04-15 16:03 | Outpatient (AMB) | payer OTHER, SELFPAY ==
[2025-04-15 16:07] VITALS: BP 122/78; PULSE 92; O2SAT 99; BMI 44.6
--- NOTE | 2025-04-15 16:07 | A.OFFPC_ITS ---
Vital Signs 04/15/25 16:07 Height 5 ft 3 in Weight 252 lb BMI 44.6 BP 122/78 Blood Pressure Location Lt brachial Position Sitting Pulse 92 Pulse Source Pulse Oximeter Pulse Oximetry (%) 99 Oxygen Delivery Method Room Air Intake Visit Reasons: Annual Exam Allergies penicillin V Allergy (Unknown, Verified 04/15/25 16:34) rash Medication List - Last Reconciled 04/15/25 by Jori Spivey PA-C lisinopril-hydrochlorothiazide 20-12.5 mg 1 tab PO DAILY 90 days Tobacco use date assessed: 04/15/25 Dental Screening Dental Screen Date: 04/15/25 Did you have a dental visit in the last 12 months?: Yes Did you have a dental problem in the last 6 months where you did not have access to dental care?: No Was dental information given to patient?: Patient has dentist HPI Annual Exam HPI Details Patient is a 54 year-old male here today for routine annual physical. Patient has a past history significant hypertension, obesity family history pancreatic cancer. --concern--> he does report over the las t 6 months having a mild type dizziness particularly with changes in head movements. Does have a history of vertigo which he reports Radha maneuvers did help him. . Hypertension:? Blood pressure today in office acceptable. He denies any hea daches, chest discomforts or palpitations. He reports he is adherent to blood pressure medication on a daily basis. .. Borderline high total cholesterol: . Most recent lipid panel showing much imp roved total cholesterol and LDL. He has been working on lifestyle and dietary modifications in his lost significant amount of weight since last office visit. PLAN: He will continue to work on lifestyle modifications to reduce his high cholesterol Elevated liver enzymes: Still has slightly more elevated ALT. Of note gained weight since last office visit. Does have ultrasound with evidence of fatty liver disease. Likely related to his obesity. . Family history pancreatic cancer:? Patient does have a strong family history of pancreatic cancer. Has done Cologuard and was negative Tumor markers negative Vaccine: UTD with Tdap,? UTD flu vac, UTD with COVID Vac, considering shingrex vaccine. .. Colon cancer screening: [place] NEGATIVE - 11/2021- repeat 3 years- will repeat Cologuard this year Laboratory Tests 09/23/23 04/11/24 06:55 07:46 RBC 5.61 Creatinine 0.96 AST 44 H ALT 65 H Cholesterol 220 H LDL Cholesterol, C alc 152 H Urine Microalbumin 23.0 PFSH Medical History Family history of pancreatic cancer Colon cancer screening Surgical History History of right hip replacement History of rhinoplasty Family History Father Diabetes Pancreatic cancer Mother Hypertension Hypercholesteremia Dementia Brother Hypercholesteremia Hypertension Paternal Uncle Pancreatic cancer Social History Housing: House Alcohol intake: never Patient Tobacco Use Status: Never used Tobacco Tobacco use type: Cigarette e-Cigarette/Vaping Use: Never Used Second Hand Smoke Exposure: No Current occupational status: employed Current occupation: [employer] Cognitive needs: No Hearing needs: No Vision needs: Yes Questionnaire PHQ-9 Over the last 2 weeks, how often have you been bothered by any of the following problems? 1. Little interest or pleasure in doing things: not at all 2. Feeling down, depressed, or hopeless: not at all 3. Trouble falling or staying asleep, or sleeping too much: not at all 4. Feeling tired or having little energy: not at all 5. Poor appetite or overeating: not at all 6. Feeling bad about yourself - or that you are a failure or have let yourself or your family down: not at all 7. Trouble concentrating on things, such as reading the newspaper or watching television: not at all 8. Moving or speaking so slowly that other people could have noticed. Or the opposite - being so fidgety or restless that you have been moving around a lot more than usual: not at all 9. Thoughts that you would be better off or of hurting yourself in some way: not at all Total score: 0 Depression Screening Interpretation: Negative Depression Screening Done: Yes 18112 - PHQ-9 Billing: Patient declined-do not bill Source: Developed by Drs. Yousif Reich, Amira Reyes, David Rausch and colleagues, with an educational amari from [employer]. Thrive Questionnaire Date Thrive assessed: 04/15/25 I am a: Patient What is your living situation today?: I have a steady place to live Within the past 12 months, did the food you bought not last and you didn't have the money to get more?: Never true Within the past 12 months, did you worry whether your food would run out before you got money to buy more?: Never true Do you have trouble paying for medicines?: No Do you have trouble getting transportation to medical appointments?: No Do you have trouble paying your heating and electricity bill?: No Do you have trouble taking care of your child, family member or friend?: No Do you have trouble with day-to-day activities such as bathing, preparing meals, shopping, managing finances, etc.?: No Are you currently unemployed and looking for a job?: No Are you interested in more education?: No Please select the resources that you would like help with: None Currently or been in a relationship where the following occur: I choose not to answer THRIVE Score: 0 AUDIT C Alcohol Use Questionnaire (AUDIT-C) 1. How often do you have a drink containing alcohol?: Never 3. How often do you have six or more drinks on one occasion?: Never Total Score: 0 SITA-7 AMB Questionnaire SITA-7 Date SITA - 7 assessed: 04/15/25 Feeling nervous, anxious, or on edge: 0 = Not at all Not being able to stop or control worryin = Not at all Worrying too much about different things: 0 = Not at all Trouble relaxin = Not at all Being so restless that it is hard to sit still: 0 = Not at all Becoming easily annoyed or irritable: 0 = Not at all Feeling afraid as if something awful might happen: 0 = Not at all Total SITA-7 score (0-4 normal; 5-9 mild; 10-14 moderate; 15-21 severe): 0 Source: Developed by Drs. Yousif Reich, Amira Reyes, David Rausch and colleagues, with an educational amari from [employer]. SITA-7 Assessment Billing SITA-7 Assessment Tool: SITA-7 Assessment 52602 Review of Systems Const Denies body aches, Denies chills, Denies excessive sweating, Denies fatigue, Denies fever(s) and Denies headache(s) Eyes Denies blurry vision ENT Denies dysphagia, Denies vertigo, Reports dizziness, Denies headache(s), Denies hearing loss and Denies tinnitus Card Denies chest pain, Denies chest pain with activity, Denies syncope, Denies irregular heart rhythm and Denies dyspnea Resp Denies chest congestion, Denies cough, Denies hemoptysis, Denies dyspnea and Denies wheezing GI Denies abdominal pain, Denies melena, Denies hematochezia, Denies coffee ground emesis, Denies dysphagia, Denies diarrhea, Denies nausea and Denies vomiting Denies difficulty urinating, Denies dysuria, Denies urinary frequency, Denies urinary hesitancy and Denies urinary urgency Musc Denies arthralgias, Denies limited range of motion, Denies muscle cramps and Denies muscle weakness Skin/Breast Denies rash and Denies skin ulcer Neuro Denies Abnormal speech present, Denies confusion, Denies vertigo, Reports dizziness, Denies syncope, Denies headache(s), Denies memory loss and Denies seizure-like activity Psych Denies anxiety, Denies confusion, Denies depression, Denies memory loss, Denies panic attacks and Denies paranoia Endo Denies excessive sweating, Denies fatigue, Denies flushing, Denies polydipsia and Denies polyuria Aller/Immun Denies wheezing Physical exam (Primary Care) Vital Signs: Last Vital Signs Pulse 92 04/15/25 16:07 BP 122/78 04/15/25 16:07 Pulse Ox 99 04/15/25 16:07 Oxygen Delivery Method Room Air 04/15/25 16:07 BMI result Body Mass Index 44.6 BMI Assessment/Plan discussion: High BMI High, discussed plan: lifestyle, weight reduction, dietary and physical activity Tobacco/Smoking Status: Tobacco use Status Tobacco use date assessed 04/15/25 04/15/25 16:12 Patient Tobacco Use Status Never used Tobacco 04/15/25 16:12 Tobacco use type Cigarette 04/15/25 16:12 e-Cigarette/Vaping Use Never Used 04/15/25 16:12 PHQ-9: PHQ-9 Score PHQ-9: Total score 0 04/15/25 16:12 Depression Screening Interpretation: Negative Thrive Assessment: Date of Thrive Assessment Date Thrive assessed 04/15/25 04/15/25 16:12 Currently or been in a relationship where the following occur: I choose not to answer Const Other: Obese General: cooperative, comfortable, no acute distress, alert and awake; No confusion Orientation/consciousness: oriented to person, oriented to place, patient oriented x3 and No confusion HENMT Head: Yes normocephalic Ears: external ears normal and TM's normal bilaterally Face and sinus: No sinus tenderness Mouth: Normal oral and palatal mucosa present and tongue normal Teeth and gingiva: dentition normal and gingiva normal Throat: Yes posterior oropharynx normal, Yes tonsils normal and Yes uvula midline Eyes Conjunctivae: conjunctivae normal Sclerae: sclerae normal Pupils: Equal, round and reactive pupils present EOM: EOMs intact bilaterally Direct Ophthalmoscopy: No no photophobia Neck Neck: Yes no lymphadenopathy, No tender and Yes no JVD Thyroid: Thyroid normal Carotids: no bruits Chest Chest palpation & inspection: no tenderness Resp Effort & Inspection: normal respiratory effort, no audible wheezes, not labored and no stridor Auscultation: no crackles, no rales, no rhonchi and no wheezes Cardio Jugular venous distension: no JVD Rate: regular rate, not bradycardic and not tachycardic Rhythm: regular rhythm Bruits: no carotid bruits Peripheral pulses: Peripheral pulses 2+ throughout GI Inspection: Yes normal to inspection, No abdominal wall ecchymosis and No visible herniation Palpation (GI): Soft to palpation, nontender, no guarding, not rigid and No hepatosplenomegaly present Auscultation: normoactive bowel sounds General: Yes no CVA tenderness Back/Spine/Pelvis Back: no CVA tenderness and No back tenderness Cervical Spine: cervical ROM normal Thoracic/Lumbar Spine: thoracic and lumbar spine normal to inspection, straight leg raise negative bilaterally, No thoraco-lumbar ROM limited and No lumbar spinal tenderness Skin Lesions: no lesions Rashes: no rashes Wounds: no wounds Neuro General: oriented to person, oriented to place, patient oriented x3, CN's II-XI intact bilaterally and No confusion Cranial nerves: Yes Equal, round and reactive pupils present and Yes Normal accommodation reflex present Cognition (Neuro): normal cognition Speech: No Abnormal speech present Gait exam (Neuro): Normal gait present Motor exam (neuro): 5/5 motor strength present throughout Extrem Right upper extremity: full ROM; no cyanosis Left upper extremity: full ROM; no cyanosis Right lower extremity: no edema Left lower extremity: no edema Psych Appearance: grossly normal Mental Status: mental status grossly normal Affect: normal affect Attitude: cooperative Thought process: Normal thought process present Coding Level of Care Code Est Pt Prev Care 40-64y(29040) Diagnoses Annual physical exam Z00.00 Primary hypertension I10 Hypertension type: primary hypertension Borderline high cholesterol E78.9 Colon cancer screening Z12.11 Class 1 obesity E66.811 Impaired glucose metabolism R73.09 Subacute cough R05.2 Cough type: subacute Additional Codes SITA-7 Assessment Billing - SITA-7 Assessment Tool: SITA-7 Assessment 36697 ([id number]) Assessment & Plan Assessment & Plan (1) Annual physical exam: Code(s): Z00.00 - Encounter for general adult medical examination without abnormal findings Category: Medical Plan: As per HPI (2) HTN (hypertension): Code(s): I10 - Essential (primary) hypertension Category: Medical Qualifiers: Hypertension type: primary hypertension Qualified Code(s): I10 - Essential (primary) hypertension Plan: Patient's blood pressure acceptable today in office. Will continue his current dose of lisinopril hydrochlorothiazide with goal blood pressure to remain below 140/90.. Of note due to patient's dizziness will consider discontinuing hydrochlorothiazide portion of his blood pressure medication to see if it will help with his dizziness. (3) Borderline high cholesterol: Code(s): E78.9 - Disorder of lipoprotein metabolism, unspecified Category: Medical Plan: Patient continues to have borderline high total cholesterol and LDL. He has been working on lifestyle and dietary modifications. He admits that recently he has not been eating too well. He will continue working on dietary modifications with goal LDL to remain below 160 (4) Colon cancer screening: Comment: COLOGUARD NEG 2021 Code(s): Z12.11 - Encounter for screening for malignant neoplasm of colon Category: Medical Plan: Willing to get Cologuard done again (5) Class 1 obesity: Code(s): E66.811 - Obesity, class 1 Category: Medical Plan: Patient does understand his BMI is over 30 will continue working on being more physically active and adapting to better eating habits to reduce his weight. (6) Impaired glucose metabolism: Code(s): R73.09 - Other abnormal glucose Category: Medical Plan: Most recent fasting blood sugar much improved. (7) Cough: Code(s): R05.9 - Cough, unspecified Category: Medical Qualifiers: Cough type: subacute Qualified Code(s): R05.2 - Subacute cough Plan: Patient reports having a low-grade cough over the last few weeks, has gotten better though is interested in cough suppressant tablets to use as needed. Orders: Orders Carbohydrate Antigen 19-9 Today Z80.0 - Family history of malignant neoplasm of digestive organs Prostate Specific Antigen Scr Today Z12.11 - Encounter for screening for malignant neoplasm of colon, Z12.5 - Encounter for screening for malignant neoplasm of prostate Referrals Cologuard Test Z12.11 - Encounter for screening for malignant neoplasm of colon Medications: New benzonatate 200 mg PO TID 15 caps 0RF 5 days R05.9 - Cough, unspecified Refilled lisinopril-hydrochlorothiazide 20-12.5 mg 1 tab PO DAILY 90 tabs 2RF 90 days I10 - Essential (primary) hypertension Patient Instructions: Goal: Blood pressure to be below 130/80 Barriers: Adherence to physical activity and healthy eating habits
== END 2025-04-15 16:46 | disposition home or self-care (01) ==
LOC: HO.HMCH 16:04
PROVIDERS: PCP Physician Assistant; Visit Provider Physician Assistant
DX: Z00.00 Encounter for general adult medical examination without abnormal findings (principal); I10 Essential (primary) hypertension; E66.811 Obesity, class 1; Z68.41 Body mass index [BMI] 40.0-44.9, adult; E78.9 Disorder of lipoprotein metabolism, unspecified; Z12.11 Encounter for screening for malignant neoplasm of colon; R73.09 Other abnormal glucose; R05.2 Subacute cough

== ENCOUNTER → 2025-04-15 16:03 | Outpatient (BNVA) | payer OTHER, SELFPAY | PROVIDERS: PCP Physician Assistant; Visit Provider Physician Assistant | DX: Z00.00 Encounter for general adult medical examination without abnormal findings (principal); I10 Essential (primary) hypertension; E78.00 Pure hypercholesterolemia, unspecified; R74.8 Abnormal levels of other serum enzymes; E66.811 Obesity, class 1; R73.09 Other abnormal glucose; R05.2 Subacute cough; Z68.41 Body mass index [BMI] 40.0-44.9, adult | CPT/HCPCS: 96127 ==